=== PATIENT | female | born 1970 | race Caucasian/White ===

== ENCOUNTER 2016-07-04 14:41 | Inpatient (IN) | payer OTHER ==
[~2016-07-04] VITALS: Ht 165.1 cm; Wt 99.2 kg
[2016-07-08] MEDS ORDERED: OMEP20TA PO (14:14)
[2016-07-08] MEDS ORDERED: IBUP800T23 PO (14:14)
[2016-07-08] MEDS ORDERED: CLON0.2T PO (14:14)
[2016-07-08] MEDS ORDERED: VITA500T49 PO (14:14)
[2016-07-08] MEDS ORDERED: AMBI10TA PO (14:14)
[2016-07-08] MEDS ORDERED: CYCL1TAB29 PO (14:14)
[2016-07-08] MEDS ORDERED: CHOL50006 PO (14:14)
[2016-07-08] MEDS ORDERED: MAGN500T4 PO (14:14)
[2016-07-08] MEDS ORDERED: VITA10007 PO (14:14)
[2016-07-08] MEDS ORDERED: BUPR150XL PO (14:14)
[2016-07-08] MEDS ORDERED: HYDR25TA5 PO (14:14)
[2016-07-08] MEDS ORDERED: LOSA25TA PO (14:14)
[2016-07-08] MEDS ORDERED: SERT-129 PO (14:14)
[2016-07-08] MEDS ORDERED: MONT10TA2 PO (14:14)
[2016-07-14] MEDS ORDERED: METOPROLOL TARTRATE 25 MG TAB PO PRN (06:45)
[2016-07-14] MEDS ORDERED: ONDANSETRON HCL 4 MG/2 ML VIAL IV PUSH SCH (06:45)
[2016-07-14] MEDS ORDERED: SODIUM CHLORID 0.9% 500 ML IV SCH (06:45)
[2016-07-14] MEDS ORDERED: INSULIN HUMAN REGULAR 1,000 UNITS/10 ML VIAL SQ PRN (06:45)
[2016-07-14] MEDS ORDERED: MIDAZOLAM HCL 2 MG/2 ML VIAL IV PUSH SCH (06:45)
[2016-07-14] MEDS: LACTATED RINGER'S 1000 ML IV SCH (06:50)
[2016-07-14 06:51] VITALS: BP 100/70; PULSE 74; RESP 16; TEMP 97.9; O2SAT 96
[2016-07-14] MEDS ORDERED: ceFAZolin 1,000 MG/NS 100 ML IV SCH ×2 (07:00)
[2016-07-14] MEDS ORDERED: ACETAMINOPHEN 1000 MG/100 ML VIAL IV ONE (07:28)
[2016-07-14] MEDS ORDERED: DEXAMETHASONE SOD PHOS 4 MG/ML VIAL ONE (07:29)
[2016-07-14] MEDS ORDERED: fentaNYL CITRATE 250 MCG/5 ML AMP ONE (07:29)
[2016-07-14] MEDS ORDERED: MIDAZOLAM HCL 2 MG/2 ML VIAL ONE (07:29)
[2016-07-14] MEDS ORDERED: FAMOTIDINE 20 MG/2 ML VIAL ONE (07:29)
[2016-07-14] MEDS ORDERED: ONDANSETRON HCL 4 MG/2 ML VIAL ONE (07:30)
[2016-07-14] MEDS ORDERED: PANTOPRAZOLE SOD 20 MG DELAYED RELEASE TAB PO SCH (09:00)
[2016-07-14] MEDS ORDERED: diphenhydrAMINE HCL 50 MG/ML VIAL IV PRN (10:00)
[2016-07-14] MEDS ORDERED: ONDANSETRON HCL 4 MG/2 ML VIAL IV PUSH PRN (10:00)
[2016-07-14] MEDS: KETOROLAC TROMETHAMINE 30 MG/ML (IVP) VIAL IV PUSH SCH ×3 (10:00→22:29)
[2016-07-14] MEDS ORDERED: oxyCODONE/ACETAMINOPHEN 5 MG/325 MG TAB PO PRN (10:00)
[2016-07-14] MEDS ORDERED: ZOLPIDEM TARTRATE 5 MG TAB PO PRN (10:00)
[2016-07-14] MEDS ORDERED: SODIUM CHLORIDE 0.9% FLUSH 5 ML FLUSH IVF PRN (10:00)
[2016-07-14] MEDS ORDERED: NALOXONE HCL 0.4 MG/ML AMP IV PRN (10:00)
[2016-07-14] MEDS ORDERED: MORPHINE SULFATE 30 MG/30 ML PCA IV SCH (10:00)
[2016-07-14] MEDS: LACTATED RINGER'S 1000 ML INJ 1,000 ML IV SCH ×2 (10:30→18:01)
[2016-07-14 11:10] VITALS: BP 125/79; PULSE 84; RESP 18; TEMP 98.3; O2SAT 99
[2016-07-14] MEDS ORDERED: DO NOT ADM ANY ANTICOAGULANT DRUGS XX PRN (11:15)
[2016-07-14] MEDS ORDERED: PROPOFOL 200 MG/20 ML AMP IV ONE (12:00)
[2016-07-14] MEDS ORDERED: ePHEDrine/NS 50 MG/5 ML SYR IV ONE (12:00)
[2016-07-14] MEDS ORDERED: NEOSTIGMINE 3 MG/3 ML SYR IV ONE (12:00)
[2016-07-14] MEDS: oxyCODONE/ACETAMINOPHEN 5 MG/325 MG TAB PO PRN ×3 (12:30→20:49)
[2016-07-14] MEDS ORDERED: PCA - TOTAL MG MORPHINE DELIVERED PER SHIFT SCH (14:00)
[2016-07-14] MEDS: SERTRALINE HCL 100 MG TAB PO SCH ×2 (14:55→20:47)
[2016-07-14] MEDS: buPROPion HCL 150 MG EXTENDED RELEASE TAB PO SCH ×2 (14:55→20:47)
[2016-07-14 16:10] VITALS: BP 114/58; PULSE 76; RESP 18; TEMP 98.2; O2SAT 98
[2016-07-14 20:00] VITALS: BP 129/79; PULSE 95; RESP 20; TEMP 98.4; O2SAT 95
[2016-07-14] MEDS ORDERED: cloNIDine HCL 0.2 MG TAB PO SCH (21:00)
[2016-07-14] MEDS ORDERED: MONTELUKAST SODIUM 10 MG TAB PO SCH (21:00)
[2016-07-14] MEDS: SODIUM CHLORIDE 0.9% FLUSH 5 ML FLUSH IVF SCH (21:00)
[2016-07-15] MEDS: LACTATED RINGER'S 1000 ML INJ 1,000 ML IV SCH (01:29)
[2016-07-15 05:00] VITALS: BP 99/58; PULSE 71; RESP 18; TEMP 98
[2016-07-15 05:09] LABS: AUTOMATED NEUTROPHIL # 12.1 TH/MM3 (1.8-7.7); BASOPHIL % 0.1 % (0.0-2.0); EOSINOPHIL % 0.3 % (0.0-4.0); HEMATOCRIT 31.7 % (35.0-46.0); LYMPH % 11.4 % (9.0-44.0); LYMPHOCYTE # 1.7 TH/MM3 (1.0-4.8); MEAN CELL VOLUME 76.4 FL (80.0-100.0); MEAN CORPUSCULAR HEMOGLOBIN 24.7 PG (27.0-34.0); MEAN CORPUSCULAR HGB CONC 32.3 % (32.0-36.0); MONO % 5.3 % (0.0-8.0); NEUT % 82.9 % (16.0-70.0); PLATELET COUNT 350 TH/MM3 (150-450); RED BLOOD COUNT 4.15 MIL/MM3 (4.00-5.30); RED CELL DISTRIBUTION WIDTH 14.6 % (11.6-17.2); WHITE BLOOD COUNT 14.6 TH/MM3 (4.0-11.0)
[2016-07-15 05:12] LABS: HEMO FLAGS AUTO DIFF
[2016-07-15] MEDS: KETOROLAC TROMETHAMINE 30 MG/ML (IVP) VIAL IV PUSH SCH (05:18)
[2016-07-15] MEDS: oxyCODONE/ACETAMINOPHEN 5 MG/325 MG TAB PO PRN (05:19)
[2016-07-15] MEDS: LACTATED RINGER'S 1000 ML IV SCH (06:45)
[2016-07-15] MEDS: SODIUM CHLORIDE 0.9% FLUSH 5 ML FLUSH IVF SCH (06:48)
[2016-07-15 07:47] LABS: PLATELET ESTIMATE SMEAR NORMAL (NORMAL); PLATELET MORPHOLOGY NORMAL (NORMAL); SCAN/DIFF AUTO DIFF CONFIRMED
[2016-07-15 08:20] VITALS: BP 122/79; PULSE 93; RESP 18; TEMP 98
[2016-07-15] MEDS ORDERED: HYDROCHLOROTHIAZIDE 25 MG TAB PO SCH (09:00)
[2016-07-15] MEDS ORDERED: LOSARTAN 25 MG TAB PO SCH (09:00)
[2016-07-15] MEDS ORDERED: KETOROLAC TROMETHAMINE 30 MG/ML (IVP) VIAL IV PUSH PRN (10:00)
--- NOTE | 2016-07-16 18:51 | MP ---
cc: NAV GALEAS DATE OF SURGERY: 07/14/2016 PREOPERATIVE DIAGNOSIS: Menorrhagia. POSTOPERATIVE DIAGNOSIS: Menorrhagia. OPERATION: Total abdominal hysterectomy. SURGEON: Nav Galeas MD ANESTHESIA: General. ESTIMATED BLOOD LOSS: Estimated blood loss was 150 cc COMPLICATIONS None. FINDINGS The patients uterus was grossly normal in size, shape and position. There were some dense adhesions beneath the bladder peritoneum. The tubes are status post tubal ligation. The ovaries were unremarkable. The upper abdominal organs were normal as far as could be palpated. There was a mass noted in her cervix, on the preoperative ultrasound, however at most was simply a few small sub centimeter fibroids and the upper cervix lower uterine segment. DESCRIPTION OF PROCEDURE The patient brought to the operating room and following general anesthesia was placed in dorsal supine position. Her vagina, abdomen and perineum were prepped and draped. A Pfannenstiel skin incision was made through the prior scar and the abdomen was opened in layers in the usual fashion. A self-retaining retractor was placed and the bowel was packed away with moist sponge laps. The round ligaments clamped, cut and tied off with 0 Vicryl stitch. The bladder peritoneum was incised and the bladder was sharply dissected off the anterior cervix. The upper broad ligaments were then clamped, cut and tied off with 0 Vicryl stitch. The uterine vessels were skeletonized and clamped, cut and tied off with 0 Vicryl stitch. The cardinal ligaments clamped, cut and tied off with 0 Vicryl stitch. The uterosacral ligaments were clamped, cut and tied off with 0 Vicryl stitch. The cervix was then amputated from the upper portion of the vagina with Jr scissors. The left and right vaginal cuff angle stitches were placed with 0 Vicryl suture incorporating the uterosacral ligaments for vaginal vault support. The vaginal mucosa was then closed with a running locking #0 Vicryl stitch. One area of slight bleeding on the right anterior cuff was oversewn with [id number] 0 Vicryl stitch and then excellent hemostasis was noted. The pelvis was irrigated. With no other abnormalities seen all instruments removed and all lap sponges were removed. Counts were correct and perineum was closed with 2-0 chromic stitch. The subfascial layer was irrigated. Hemostasis fascia present so the fascia was closed with zero PDS stitch. Subcutaneous layer had good hemostasis so subcutaneous tissue was closed with a 2-0 chromic stitch. The skin was then closed with talisha. The patient was then taken to the Recovery Room in good condition with all counts correct and clear urine draining her Garcia catheter. MD GENESIS Jiménez/mark /9:39 AM /6:33 PM
== END 2016-07-15 09:45 | disposition home or self-care (01) | DRG 743 ==
LOC: HSDI 07-14 05:58 → H1EA 07-14 11:03
PROVIDERS: ADMIT Obstetrics & Gynecology; ATTEND Obstetrics & Gynecology
PROC: 0UTC0ZZ Resection of Cervix, Open Approach (ICD-10-PCS; 2016-07-14)
PROC: 0UT90ZZ Resection of Uterus, Open Approach (ICD-10-PCS; principal; 2016-07-14 07:50)
DX: N92.0 Excessive and frequent menstruation with regular cycle (principal); I10 Essential (primary) hypertension; F32.9 Major depressive disorder, single episode, unspecified; J45.909 Unspecified asthma, uncomplicated; D64.9 Anemia, unspecified; K21.9 Gastro-esophageal reflux disease without esophagitis; Z88.5 Allergy status to narcotic agent; Z88.0 Allergy status to penicillin; Z88.8 Allergy status to other drugs, medicaments and biological substances; Z88.1 Allergy status to other antibiotic agents
CPT/HCPCS: 85025; 86850; 86900; 86901; 88307; 94150; J0131; J0690; J1100; J1885; J2250; J2270; J2405; J2710; J3010; J7120

== ENCOUNTER → 2016-07-08 | Outpatient (CLI) | payer OTHER ==
[~2016-07-08] MED LIST: AMBI10TA PO; BUPR150XL PO; CHOL50006 PO; CLON.1 OR; CLON.1 PO; CLON0.2T PO; CLOR1TAB21 PO; CYCL1TAB29 PO; FLEX10TA PO; HYDR25TA5 PO; IBUP800T23 PO; LOSA25TA PO; MAGN500T4 PO; MONT10TA2 PO; NAPR550 PO; NEUR100C PO; OMEP20TA PO; SERT-129 PO; SERT50 PO; VITA10007 PO; VITA500T49 PO; ZOLO50TA PO; ZYRT10TA12 PO
[2016-07-08 10:33] LABS: HEMATOCRIT 35.7 % (35.0-46.0); MEAN CELL VOLUME 76.3 FL (80.0-100.0); MEAN CORPUSCULAR HEMOGLOBIN 25.1 PG (27.0-34.0); MEAN CORPUSCULAR HGB CONC 32.9 % (32.0-36.0); PLATELET COUNT 356 TH/MM3 (150-450); RED BLOOD COUNT 4.68 MIL/MM3 (4.00-5.30); RED CELL DISTRIBUTION WIDTH 14.9 % (11.6-17.2); REVIEW FLAG FINAL; WHITE BLOOD COUNT 10.1 TH/MM3 (4.0-11.0)
== END ==
LOC: CPRE 09:53
PROVIDERS: ATTEND Obstetrics & Gynecology
DX: Z01.812 Encounter for preprocedural laboratory examination (principal); N92.0 Excessive and frequent menstruation with regular cycle
CPT/HCPCS: 36415; 84703; 85027